=== PATIENT | male | born 1970 | race Caucasian/White ===

== ENCOUNTER → 2025-01-24 06:42 | Outpatient (REF) | payer OTHER, SELFPAY ==
[2025-01-24 08:07] LABS: Urine Character Clear (Clear)
[2025-01-24 08:21] LABS: Hematocrit 39.0 % (39.0-52.0); Hemoglobin 13.7 g/dL (13.0-18.0); Mean Corp Hgb Conc. 35.1 g/dL (33.0-37.0); Mean Corpuscular Volume 90.3 fL (80.0-94.0); Nucleated Red Blood Cells % 0 % (-); Platelet Count 305 10^3/uL (130-400); Red Cell Dist. Width 12.2 % (11.5-14.5)
[2025-01-24 08:48] LABS: ALT (SGPT) 37 U/L (0-50); AST (SGOT) 43 U/L (17-59); Albumin 4.6 g/dl (3.5-5.0); Alkaline Phosphatase 55 U/L (38-126); Blood Urea Nitrogen 12 mg/dl (9-20); Calcium 9.4 mg/dl (8.4-10.2); Carbon Dioxide 31 mmol/L (22-30); Chloride 103 mmol/L (98-107); Glucose 75 mg/dl (70-99); HDL Cholesterol 53 mg/dl; LDL Cholesterol, Calculated 102 mg/dl; Potassium 4.0 mmol/L (3.5-5.1); Sodium 139 mmol/L (135-145); Total Protein 7.0 g/dl (6.3-8.2); Very Low Density Lipoprotein 16 mg/dl (0-30); eGFR > 60.00
[2025-01-24 09:17] LABS: Urine Squamous Cell 0-2 /LPF (Few)
[2025-01-24 09:18] LABS: Urine Red Blood Cell 0-2 /HPF (0-2); Urine White Cell 0-2 /HPF (0-5)
== END ==
LOC: REG 06:42
PROVIDERS: ATTENDING PHYSICIAN Internal Medicine
DX: E78.89 Other lipoprotein metabolism disorders (principal); Z80.0 Family history of malignant neoplasm of digestive organs; R68.89 Other general symptoms and signs; Z13.9 Encounter for screening, unspecified
CPT/HCPCS: 36415; 80053; 80061; 81003; 81015; 85025